=== PATIENT | male | born 2000 | race African-American/Black ===

== ENCOUNTER 2019-12-22 00:02 | Emergency (ER) | payer OTHER ==
[~2019-12-22] VITALS: Ht 175.3 cm; Wt 61.4 kg
[2019-12-22 00:04] VITALS: Ht 175.3 cm; Wt 61.4 kg
[2019-12-22 03:38] VITALS: BP 105/49
== END 2019-12-22 03:42 | disposition home or self-care (01) ==
LOC: D.ER 00:02
DX: R51 Headache (principal); V89.2XXA Person injured in unspecified motor-vehicle accident, traffic, initial encounter; Y93.9 Activity, unspecified; Y92.9 Unspecified place or not applicable; J45.909 Unspecified asthma, uncomplicated; Z72.0 Tobacco use